=== PATIENT | male | born 1965 | race Caucasian/White ===

== ENCOUNTER 2018-09-22 18:51 | Emergency (ER) | payer OTHER ==
[~2018-09-22] VITALS: Ht 175.3 cm; Wt 91.6 kg
[2018-09-22] MEDS ORDERED: METOPROLOL TARTRATE 25 MG TAB PO ONE (19:15)
[2018-09-22 19:25] VITALS: BP 122/87
== END 2018-09-22 19:29 | disposition home or self-care (01) ==
LOC: ER 18:51
DX: M79.604 Pain in right leg (principal); I82.431 Acute embolism and thrombosis of right popliteal vein; I10 Essential (primary) hypertension; E11.9 Type 2 diabetes mellitus without complications
CPT/HCPCS: 99283

== ENCOUNTER 2020-09-26 05:16 | Observation (INO) | payer OTHER ==
[2020-09-24 13:17] LABS: BASOPHILS # (AUTO) 0.1 (0.0-0.1); EOSINOPHILS # (AUTO) 0.1 (0.0-0.4); HEMOGLOBIN 16.2 g/dL (14.0-18.0); LYMPHOCYTES # (AUTO) 1.9 (1.0-3.2); MEAN CORPUSCULAR HEMOGLOBIN 29.8 pg (28-32); MEAN CORPUSCULAR HGB CONC 33.8 g/dL (31-35); MEAN CORPUSCULAR VOLUME 88.2 fL (81-99); MONOCYTES # (AUTO) 0.4 (0.2-0.8); MONOCYTES % 6.3 % (4.4-11.3); NEUTROPHILS # (AUTO) 4.4 (2.1-6.9); NEUTROPHILS % 63.4 % (38.7-80.0); PLATELET COUNT 310 x10e3/uL (140-360); RED BLOOD COUNT 5.44 x10e6/uL (4.3-5.7); RED CELL DISTRIBUTION WIDTH 11.9 % (11.7-14.4)
[2020-09-24 13:29] LABS: INR 0.91; PROTHROMBIN TIME 12.8 seconds (11.9-14.5)
[2020-09-24 13:30] LABS: PARTIAL THROMBOPLASTIN TIME 23.4 seconds (23.8-35.5)
[2020-09-24 13:36] LABS: ANION GAP 16.2 mmol/L (8-16); BLOOD UREA NITROGEN 16 mg/dL (7-26); BUN/CREATININE RATIO 16 (6-25); CARBON DIOXIDE 19 mmol/L (22-29); CHLORIDE 107 mmol/L (98-107); EST GLOMERULAR FILTRATION RATE > 60 ML/MIN (60-); GLUCOSE 152 mg/dL (74-118); POTASSIUM 4.2 mmol/L (3.5-5.1); SODIUM 138 mmol/L (136-145)
[~2020-09-26] VITALS: Ht 175.3 cm; Wt 86.2 kg
[~2020-09-26 05:16] MED LIST: ATORVASTATIN CA20 MG PO; CARISOPRODOL350 MG PO; FENOFIBRATE134 MG PO; FLOMAX0.4 MG PO; GLIPIZIDE5 MG PO; HYDROCODON-ACE1 EA12 PO; LOSARTAN POTAS100 MG PO; METFORMIN HCL1000 MG PO; METOPROLOL TART25 MG PO; NEURONTIN400 MG PO; NOVOLIN N100 UNIT/1 SC
[2020-09-26] MEDS ORDERED: CEFAZOLIN SOD 1 GM/NS 50ML 100 ML IV ONE (05:44)
[2020-09-26] MEDS ORDERED: LIDOCAINE 1% W/EPINEPHRINE 20 ML VIAL ONE (06:49)
[2020-09-26] MEDS ORDERED: THROMBIN FOR SOLN 5,000 UNIT VIAL ONE (06:50)
[2020-09-26] MEDS ORDERED: VANCOMYCIN HCL 1 GM VIAL ONE (06:50)
[2020-09-26] MEDS ORDERED: ACETAMINOPHEN 1000 MG/100 ML 100 ML IV ONE (07:16)
[2020-09-26] MEDS ORDERED: LIDOCAINE HCL (LTA) 4 ML SOLN ONE (07:17)
[2020-09-26] MEDS ORDERED: IBUPROFEN 800MG/ 200ML 200 ML IV ONE (07:17)
[2020-09-26] MEDS ORDERED: SCOPOLAMINE 1.5 MG PATCH ONE (07:29)
[2020-09-26] MEDS ORDERED: FAMOTIDINE 20 MG/2 ML VIAL IV ONE (07:30)
[2020-09-26] MEDS ORDERED: SUGAMMADEX SODIUM 200 MG/2 ML VIAL IV ONE (07:30)
[2020-09-26] MEDS ORDERED: ACETAMINOPHEN 325 MG TAB PO PRN (08:45)
[2020-09-26] MEDS ORDERED: PROMETHAZINE HCL (IM) 25 MG/ML VIAL IM PRN (08:45)
[2020-09-26] MEDS ORDERED: CEPACOL SORE THROAT LOZENGES PO PRN (08:45)
[2020-09-26] MEDS ORDERED: MORPHINE SULFATE INJ 4 MG/ML INJ 1ML IM PRN (08:45)
[2020-09-26] MEDS ORDERED: MAGNESIUM/ALUMINUM/SIMETHICONE 30 ML UDC PO PRN (08:45)
[2020-09-26] MEDS ORDERED: HYDROCODONE/APAP 7.5MG-325MG 1 EA TAB PO SCH (08:45)
[2020-09-26] MEDS ORDERED: HYDROMORPHONE 2MG/ML 2 MG/ML ML IV PRN (08:45)
[2020-09-26] MEDS ORDERED: ZOLPIDEM TARTRATE 5 MG TAB PO PRN (08:45)
[2020-09-26] MEDS ORDERED: ONDANSETRON HCL INJ 2MG/ML 2ML 2 MG/ML VIAL IV PRN (08:45)
[2020-09-26] MEDS ORDERED: CARISOPRODOL 350 MG TAB PO PRN (08:45)
[2020-09-26] MEDS ORDERED: CARISOPRODOL 350 MG TAB PO SCH (08:45)
[2020-09-26] MEDS ORDERED: OXYCODONE/ACETAMINOPHEN 5-325 1 EACH TABLET PO PRN (08:45)
[2020-09-26] MEDS ORDERED: ULTRAM50 MG PO (08:46)
[2020-09-26] MEDS: NON-FORMULARY MEDICATION (Fenofibrate,Micronized (Fenofibrate) 160 MG) PO SCH (09:00)
[2020-09-26] MEDS ORDERED: METOCLOPRAMIDE HCL 10 MG/2ML VIAL ONE (09:27)
[2020-09-26] MEDS ORDERED: FENTANYL CITRATE/PF 100MCG/2 ML INJ ONE ×2 (09:42→13:28)
[2020-09-26] MEDS ORDERED: DEXTROSE 50% SYRINGE 50 ML IV PRN (10:15)
[2020-09-26 10:40] VITALS: BP 131/86
[2020-09-26] MEDS: GABAPENTIN 300 MG CAP PO SCH ×2 (11:15→17:30)
[2020-09-26] MEDS: METOPROLOL TARTRATE 25 MG TAB PO SCH ×2 (11:15→17:30)
[2020-09-26] MEDS: LACTATED RINGER'S 1,000 ML IV SCH ×2 (11:40→19:50)
[2020-09-26] MEDS: INSULIN LISPRO 100 UNIT/1 ML 3ML VIAL SQ SCH ×3 (11:45→21:00)
[2020-09-26] MEDS: TAMSULOSIN HCL 0.4 MG CAP PO SCH (11:49)
[2020-09-26 11:55] VITALS: BP 131/86
[2020-09-26] MEDS ORDERED: POVIDONE IODINE 0.05% 0.05 % ML PO ONE (12:42)
[2020-09-26] MEDS ORDERED: LIDOCAINE HCL 2% LOCAL INJ 5 ML SDV VIAL INJ ONE (12:42)
[2020-09-26] MEDS ORDERED: ROCURONIUM BROMIDE 10 MG/ML 5ML VIAL IV ONE (12:42)
[2020-09-26] MEDS ORDERED: ONDANSETRON HCL INJ 2MG/ML 2ML 2 MG/ML VIAL ONE (12:42)
[2020-09-26] MEDS ORDERED: SEVOFLURANE INHAL SOLN 250 ML PEN BTL ONE (12:42)
[2020-09-26] MEDS ORDERED: PROPOFOL IV EMULSION 10 MG/ML 20 ML VIAL ONE (12:42)
[2020-09-26] MEDS ORDERED: DEXAMETHASONE SOD PHOS INJ 4 MG/ML VIAL ONE (12:42)
[2020-09-26] MEDS ORDERED: MIDAZOLAM HCL 2 MG/2 ML VIAL ONE (13:28)
[2020-09-26] MEDS: CEFAZOLIN SOD 1 GM/NS 50ML 50 ML IV SCH ×2 (15:45→23:56)
[2020-09-26 16:57] VITALS: BP 125/67
[2020-09-26 20:00] VITALS: BP 132/80
[2020-09-26] MEDS ORDERED: LOSARTAN POTASSIUM 100 MG TAB PO SCH (21:00)
[2020-09-26] MEDS ORDERED: ATORVASTATIN 40 MG TAB PO SCH (21:00)
[2020-09-26] MEDS ORDERED: METFORMIN HCL 500 MG TAB PO SCH (21:00)
[2020-09-26] MEDS ORDERED: NPH, HUMAN INSULIN ISOPHANE 100 UNIT/1 ML 3ML VIAL SQ SCH (21:00)
[2020-09-26] MEDS ORDERED: GLIPIZIDE 5 MG TAB PO SCH (21:00)
[2020-09-26 21:09] VITALS: BP 132/80
[2020-09-27] VITALS: BP 127/88
[2020-09-27 04:00] VITALS: BP 120/77
[2020-09-27] MEDS: LACTATED RINGER'S 1,000 ML IV SCH (04:10)
[2020-09-27] MEDS: INSULIN LISPRO 100 UNIT/1 ML 3ML VIAL SQ SCH (07:30)
[2020-09-27] MEDS: GABAPENTIN 300 MG CAP PO SCH (08:51)
[2020-09-27] MEDS: TAMSULOSIN HCL 0.4 MG CAP PO SCH (08:51)
[2020-09-27] MEDS: CEFAZOLIN SOD 1 GM/NS 50ML 50 ML IV SCH (08:51)
[2020-09-27] MEDS: METOPROLOL TARTRATE 25 MG TAB PO SCH (08:51)
[2020-09-27] MEDS: NON-FORMULARY MEDICATION (Fenofibrate,Micronized (Fenofibrate) 160 MG) PO SCH (08:54)
[2020-09-27 09:00] VITALS: BP 118/71
[2020-09-27 09:32] VITALS: BP 119/71
== END 2020-09-27 10:00 | disposition home or self-care (01) ==
LOC: OR 05:16 → PACU V 09:49 → MED/SURG 10:16
PROVIDERS: ADMIT Neurological Surgery; ATTEND Neurological Surgery
DX: M50.122 Cervical disc disorder at C5-C6 level with radiculopathy (principal); E11.9 Type 2 diabetes mellitus without complications; I10 Essential (primary) hypertension; E78.5 Hyperlipidemia, unspecified; Z88.8 Allergy status to other drugs, medicaments and biological substances; Z88.5 Allergy status to narcotic agent; Z91.013 Allergy to seafood; Z01.810 Encounter for preprocedural cardiovascular examination; Z01.812 Encounter for preprocedural laboratory examination; Z01.818 Encounter for other preprocedural examination; Z79.84 Long term (current) use of oral hypoglycemic drugs; Z20.822 Contact with and (suspected) exposure to COVID-19
CPT/HCPCS: 20931; 22551; 22845; 36415 ×2; 71046; 72040; 77003; 80048; 82948; 85025; 85610; 85730; 86850; 86900; 88304; 88311; 93005; C1713 ×2; G0378 ×2; J0131; J0690 ×2; J1100; J1170; J2001; J2250; J2405; J2704; J2765; J3010; J3370; J7121; U0002

== ENCOUNTER → 2020-10-28 | Outpatient (CLI) | payer OTHER ==
[~2020-10-28] MED LIST changes: +ULTRAM50 MG PO
== END ==
LOC: RAD 12:45
PROVIDERS: ATTEND Neurological Surgery
DX: M50.20 Other cervical disc displacement, unspecified cervical region (principal); M43.22 Fusion of spine, cervical region
CPT/HCPCS: 72050

== ENCOUNTER → 2021-04-24 | Outpatient (CLI) | payer OTHER | LOC: RAD 10:23 | PROVIDERS: ATTEND Neurological Surgery | DX: M50.20 Other cervical disc displacement, unspecified cervical region (principal); M43.22 Fusion of spine, cervical region | CPT/HCPCS: 72050 ==